=== PATIENT | female | born 1940 | race Caucasian/White ===

== ENCOUNTER 2020-08-19 17:11 | Inpatient (IN) ==
[~2020-08-19 17:11] MED LIST: Ascorbic Acid 500 MG TABLET PO SCH
[2020-08-19] MEDS ORDERED: *HR* Dextrose 50 % in Water (Vial) 50 ML VIAL IVP PRN (18:18)
[2020-08-19] MEDS ORDERED: Dextrose Gel 15 GM/37.5 ML TUBE PO PRN ×2 (18:18)
[2020-08-19] MEDS ORDERED: D5% in Water 1,000 ML IVC PRN (18:18)
[2020-08-19] MEDS: Morphine Sulfate ER (12 HR) 15 MG TABLET.ER PO SCH (20:59)
[2020-08-19] MEDS: carvediloL 6.25 MG TABLET PO SCH (20:59)
[2020-08-19] MEDS: Apixaban 5 MG TABLET PO SCH (20:59)
[2020-08-19] MEDS: Famotidine 20 MG TABLET PO SCH (20:59)
[2020-08-19] MEDS: Insulin LISPRO 300 UNITS/3 ML VIAL SUBQ SCH (20:59)
[2020-08-19] MEDS: Mirtazapine 15 MG TABLET PO SCH (20:59)
[2020-08-20 05:41] LABS: Hematocrit 29.1 % (35.3-44.9); Hemoglobin 9.7 g/dL (11.5-15.4); Mean Corpuscular HGB Conc 33.3 g/dL (31.6-35.5); Mean Corpuscular Hemoglobin 28.8 pg (28.0-33.3); Mean Corpuscular Volume 86.4 fL (83.0-100.0); Mean Platelet Volume 8.9 fL (9.4-12.4); Monocytes # 0.2 K/mcL (0.0-1.3); Platelet Count 298 K/mcL (140-400); Red Blood Count 3.37 M/mcL (3.82-4.97); Red Cell Distribution Width 14.4 % (11.5-14.5); White Blood Count 2.2 K/mcL (4.3-11.1)
[2020-08-20 05:56] LABS: INR 1.4; Prothrombin Time 15.7 Seconds (9.4-12.1)
[2020-08-20] MEDS ORDERED: *HR* Heparin 5,000 UNIT/ML VIAL SQ SCH (06:00)
[2020-08-20 06:07] LABS: BUN/Creatinine Ratio 40 (6-26); Blood Urea Nitrogen 23 mg/dL (8-23); Calcium 7.8 mg/dL (8.6-10.3); Carbon Dioxide 27 mEq/L (23-29); Chloride 102 mEq/L (98-107); Glucose 173 mg/dL (70-105); Osmolality,Calculated 288 (280-300); Potassium 4.3 mEq/L (3.5-5.1); Sodium 135 mEq/L (136-145); eGFR For African Americans > 60 (> 60); eGFR For Non-African Americans > 60 (> 60)
[2020-08-20 06:56] LABS: Lymphocytes # 0.3 K/mcL (0.6-4.6); Neutrophils # 1.7 K/mcL (1.6-8.9)
[2020-08-20 06:57] LABS: Platelet Estimate Normal (Normal)
[2020-08-20] MEDS: Insulin LISPRO 300 UNITS/3 ML VIAL SUBQ SCH ×4 (10:43→22:32)
[2020-08-20] MEDS: *HR* Metformin 500 MG TABLET PO SCH ×2 (10:46→17:25)
[2020-08-20] MEDS: carvediloL 6.25 MG TABLET PO SCH ×2 (10:46→18:06)
[2020-08-20] MEDS: *HR* SitaGLIPtin 100 MG TABLET PO SCH (10:47)
[2020-08-20] MEDS: Multivit/Ca/Min/Fe/FA 1 TAB TABLET PO SCH (10:47)
[2020-08-20] MEDS: Apixaban 5 MG TABLET PO SCH ×2 (10:47→20:18)
[2020-08-20] MEDS: Morphine Sulfate ER (12 HR) 15 MG TABLET.ER PO SCH ×2 (10:47→20:17)
[2020-08-20] MEDS: dexAMETHasone 4 MG TABLET PO SCH (10:50)
[2020-08-20] MEDS: Famotidine 20 MG TABLET PO SCH (20:18)
[2020-08-20] MEDS: Mirtazapine 15 MG TABLET PO SCH (20:18)
[2020-08-21] MEDS ORDERED: carvediloL 6.25 MG TABLET PO SCH (08:00)
[2020-08-21] MEDS: *HR* SitaGLIPtin 100 MG TABLET PO SCH (09:12)
[2020-08-21] MEDS: dexAMETHasone 4 MG TABLET PO SCH (09:12)
[2020-08-21] MEDS: *HR* Metformin 500 MG TABLET PO SCH ×2 (09:13→16:18)
[2020-08-21] MEDS: carvediloL 6.25 MG TABLET PO SCH ×2 (09:13→16:18)
[2020-08-21] MEDS: Multivit/Ca/Min/Fe/FA 1 TAB TABLET PO SCH (09:13)
[2020-08-21] MEDS: Apixaban 5 MG TABLET PO SCH ×2 (09:14→20:38)
[2020-08-21] MEDS: Morphine Sulfate ER (12 HR) 15 MG TABLET.ER PO SCH ×2 (09:14→20:37)
[2020-08-21] MEDS: Cyanocobalamin (B-12) 1,000 MCG TABLET PO SCH (09:16)
[2020-08-21] MEDS: Insulin LISPRO 300 UNITS/3 ML VIAL SUBQ SCH ×4 (09:17→20:47)
[2020-08-21] MEDS: Ascorbic Acid 500 MG TABLET PO SCH (09:17)
[2020-08-21] MEDS: Ondansetron ODT 4 MG TAB.RAPDIS SL PRN (14:58)
[2020-08-21] MEDS: Famotidine 20 MG TABLET PO SCH (20:37)
[2020-08-21] MEDS: Mirtazapine 15 MG TABLET PO SCH (20:38)
[2020-08-22] MEDS: *HR* OxyCODONE Immed Rel 5 MG TABLET PO PRN (00:54)
[2020-08-22 07:29] LABS: Hematocrit 31.7 % (35.3-44.9); Hemoglobin 10.5 g/dL (11.5-15.4); Mean Corpuscular HGB Conc 33.1 g/dL (31.6-35.5); Mean Corpuscular Hemoglobin 28.9 pg (28.0-33.3); Mean Corpuscular Volume 87.3 fL (83.0-100.0); Mean Platelet Volume 8.6 fL (9.4-12.4); Platelet Count 327 K/mcL (140-400); Red Blood Count 3.63 M/mcL (3.82-4.97); Red Cell Distribution Width 14.7 % (11.5-14.5); White Blood Count 2.6 K/mcL (4.3-11.1)
[2020-08-22 07:46] LABS: BUN/Creatinine Ratio 38 (6-26); Blood Urea Nitrogen 26 mg/dL (8-23); Calcium 8.1 mg/dL (8.6-10.3); Carbon Dioxide 26 mEq/L (23-29); Chloride 98 mEq/L (98-107); Glucose 136 mg/dL (70-105); Magnesium 1.4 mg/dL (1.6-2.6); Osmolality,Calculated 279 (280-300); Potassium 4.6 mEq/L (3.5-5.1); Sodium 131 mEq/L (136-145); eGFR For African Americans > 60 (> 60); eGFR For Non-African Americans > 60 (> 60)
[2020-08-22] MEDS: Insulin LISPRO 300 UNITS/3 ML VIAL SUBQ SCH ×4 (08:16→20:06)
[2020-08-22] MEDS: *HR* SitaGLIPtin 100 MG TABLET PO SCH (08:17)
[2020-08-22] MEDS: *HR* Metformin 500 MG TABLET PO SCH ×2 (08:17→15:06)
[2020-08-22] MEDS: Multivit/Ca/Min/Fe/FA 1 TAB TABLET PO SCH (08:17)
[2020-08-22] MEDS: Morphine Sulfate ER (12 HR) 15 MG TABLET.ER PO SCH ×2 (08:17→20:03)
[2020-08-22] MEDS: carvediloL 6.25 MG TABLET PO SCH ×2 (08:17→16:46)
[2020-08-22] MEDS: Apixaban 5 MG TABLET PO SCH ×2 (08:17→20:03)
[2020-08-22] MEDS: dexAMETHasone 4 MG TABLET PO SCH (08:18)
[2020-08-22 10:32] LABS: Bilirubin,Urine Negative (Negative); Blood,Urine Large (Negative); Clarity,Urine Turbid (Clear); Color,Urine Yellow (Yellow); Glucose,Urine (UA) 500 mg/dL (Normal); Ketones,Urine Negative (Negative); Leukocyte Esterase,Urine Large (Negative); Nitrite,Urine Negative (Negative); Protein,Urine 100 mg/dL (Neg-Trace); Specific Gravity,Urine 1.025 (1.010-1.025); Urobilinogen,Urine Normal (Normal)
[2020-08-22 10:40] LABS: Bacteria,Urine Many per hpf (None-Few); RBC,Urine 50-100 per hpf (0-3); WBC,Urine TNTC per hpf (0-3)
[2020-08-22] MEDS ORDERED: cefTRIAXone 2,000 MG in 0.9 % Sodium Chloride Mini Bag 100 ML IVPB SCH (11:09)
[2020-08-22] MEDS ORDERED: 0.9 % Sodium Chloride 1,000 ML ONE (15:03)
[2020-08-22] MEDS: 0.9 % Sodium Chloride 1,000 ML IVC SCH (15:15)
[2020-08-22] MEDS: Mirtazapine 15 MG TABLET PO SCH (20:03)
[2020-08-22] MEDS: Famotidine 20 MG TABLET PO SCH (20:04)
[2020-08-23] MEDS: 0.9 % Sodium Chloride 1,000 ML IVC SCH ×2 (05:11→20:26)
[2020-08-23] MEDS: Insulin LISPRO 300 UNITS/3 ML VIAL SUBQ SCH ×4 (08:32→21:35)
[2020-08-23] MEDS: Multivit/Ca/Min/Fe/FA 1 TAB TABLET PO SCH (08:33)
[2020-08-23] MEDS: *HR* Metformin 500 MG TABLET PO SCH ×2 (08:33→16:54)
[2020-08-23] MEDS: Morphine Sulfate ER (12 HR) 15 MG TABLET.ER PO SCH ×2 (08:33→20:24)
[2020-08-23] MEDS: Apixaban 5 MG TABLET PO SCH ×2 (08:33→20:24)
[2020-08-23] MEDS: carvediloL 6.25 MG TABLET PO SCH ×2 (08:33→16:54)
[2020-08-23] MEDS: *HR* SitaGLIPtin 100 MG TABLET PO SCH (08:33)
[2020-08-23] MEDS: dexAMETHasone 4 MG TABLET PO SCH (08:33)
[2020-08-23 09:42] LABS: Basophils % 0.4 %; Eosinophils % 0.8 %; Hematocrit 32.8 % (35.3-44.9); Hemoglobin 10.6 g/dL (11.5-15.4); Immature Granulocytes % 2.9 % (0-4); Lymphocytes # 0.2 K/mcL (0.6-4.6); Lymphocytes % 7.8 %; Mean Corpuscular HGB Conc 32.3 g/dL (31.6-35.5); Mean Corpuscular Hemoglobin 28.9 pg (28.0-33.3); Mean Corpuscular Volume 89.4 fL (83.0-100.0); Mean Platelet Volume 8.7 fL (9.4-12.4); Monocytes # 0.1 K/mcL (0.0-1.3); Monocytes % 5.7 %; Platelet Count 281 K/mcL (140-400); Red Blood Count 3.67 M/mcL (3.82-4.97); Red Cell Distribution Width 14.7 % (11.5-14.5); Segmented Neutrophils % 82.4 %; White Blood Count 2.5 K/mcL (4.3-11.1)
[2020-08-23 09:56] LABS: Alanine Aminotransferase 31 Units/L (7-52); Albumin 2.7 g/dL (3.5-5.7); Alkaline Phosphatase 44 Units/L (34-104); Aspartate Amino Transferase 15 Units/L (13-39); BUN/Creatinine Ratio 34 (6-26); Bilirubin,Total 0.4 mg/dL (0.3-1.0); Blood Urea Nitrogen 19 mg/dL (8-23); Calcium 7.9 mg/dL (8.6-10.3); Carbon Dioxide 26 mEq/L (23-29); Chloride 103 mEq/L (98-107); Globulin 2.8 g/dL (2.4-3.5); Glucose 90 mg/dL (70-105); Magnesium 1.4 mg/dL (1.6-2.6); Osmolality,Calculated 284 (280-300); Potassium 4.2 mEq/L (3.5-5.1); Sodium 136 mEq/L (136-145); Total Protein 5.5 g/dL (6.4-8.9); eGFR For African Americans > 60 (> 60); eGFR For Non-African Americans > 60 (> 60)
[2020-08-23 09:59] LABS: Neutrophils # 2.1 K/mcL (1.6-8.9)
[2020-08-23] MEDS: Famotidine 20 MG TABLET PO SCH (20:24)
[2020-08-23] MEDS: Mirtazapine 15 MG TABLET PO SCH (20:24)
[2020-08-24] MEDS: dexAMETHasone 4 MG TABLET PO SCH (07:47)
[2020-08-24] MEDS: carvediloL 6.25 MG TABLET PO SCH ×2 (07:47→16:18)
[2020-08-24] MEDS: *HR* Metformin 500 MG TABLET PO SCH ×2 (07:47→16:18)
[2020-08-24] MEDS: Morphine Sulfate ER (12 HR) 15 MG TABLET.ER PO SCH ×2 (07:47→21:12)
[2020-08-24] MEDS: *HR* SitaGLIPtin 100 MG TABLET PO SCH (07:47)
[2020-08-24] MEDS: Multivit/Ca/Min/Fe/FA 1 TAB TABLET PO SCH (07:48)
[2020-08-24] MEDS: Insulin LISPRO 300 UNITS/3 ML VIAL SUBQ SCH ×4 (07:48→21:15)
[2020-08-24] MEDS: Apixaban 5 MG TABLET PO SCH ×2 (07:48→21:12)
[2020-08-24] MEDS: Ascorbic Acid 500 MG TABLET PO SCH (08:00)
[2020-08-24] MEDS: Cyanocobalamin (B-12) 1,000 MCG TABLET PO SCH (08:00)
[2020-08-24] MEDS: 0.9 % Sodium Chloride 1,000 ML IVC SCH (09:55)
[2020-08-24] MEDS: Mirtazapine 15 MG TABLET PO SCH (21:11)
[2020-08-24] MEDS: Famotidine 20 MG TABLET PO SCH (21:12)
[2020-08-25] MEDS: Insulin LISPRO 300 UNITS/3 ML VIAL SUBQ SCH ×4 (08:39→20:31)
[2020-08-25] MEDS: Multivit/Ca/Min/Fe/FA 1 TAB TABLET PO SCH (08:44)
[2020-08-25] MEDS: carvediloL 6.25 MG TABLET PO SCH ×2 (08:45→16:10)
[2020-08-25] MEDS: *HR* Metformin 500 MG TABLET PO SCH ×2 (08:45→16:10)
[2020-08-25] MEDS: Morphine Sulfate ER (12 HR) 15 MG TABLET.ER PO SCH ×2 (08:45→20:31)
[2020-08-25] MEDS: *HR* SitaGLIPtin 100 MG TABLET PO SCH (08:45)
[2020-08-25] MEDS: Apixaban 5 MG TABLET PO SCH ×2 (08:45→20:30)
[2020-08-25] MEDS: dexAMETHasone 4 MG TABLET PO SCH (08:47)
[2020-08-25] MEDS: Mirtazapine 15 MG TABLET PO SCH (20:30)
[2020-08-25] MEDS: Famotidine 20 MG TABLET PO SCH (20:30)
[2020-08-26] MEDS: Insulin LISPRO 300 UNITS/3 ML VIAL SUBQ SCH ×5 (06:44→20:33)
[2020-08-26] MEDS: Aspirin Enteric Coated 81 MG Tablet PO SCH ×2 (06:44)
[2020-08-26] MEDS: carvediloL 6.25 MG TABLET PO SCH ×2 (06:46→16:45)
[2020-08-26] MEDS: Ascorbic Acid 500 MG TABLET PO SCH (06:46)
[2020-08-26] MEDS: Morphine Sulfate ER (12 HR) 15 MG TABLET.ER PO SCH ×2 (06:46→20:32)
[2020-08-26] MEDS: *HR* SitaGLIPtin 100 MG TABLET PO SCH (06:46)
[2020-08-26] MEDS: Multivit/Ca/Min/Fe/FA 1 TAB TABLET PO SCH (06:47)
[2020-08-26] MEDS: Cyanocobalamin (B-12) 1,000 MCG TABLET PO SCH (06:47)
[2020-08-26] MEDS: dexAMETHasone 4 MG TABLET PO SCH (06:47)
[2020-08-26] MEDS: *HR* Metformin 500 MG TABLET PO SCH ×2 (06:47→16:45)
[2020-08-26] MEDS: Apixaban 5 MG TABLET PO SCH ×2 (06:47→20:32)
[2020-08-26] MEDS ORDERED: Insulin LISPRO 300 UNITS/3 ML VIAL SUBQ SCH (11:49)
[2020-08-26] MEDS: *HR* OxyCODONE Immed Rel 5 MG TABLET PO PRN (14:18)
[2020-08-26] MEDS: Mirtazapine 15 MG TABLET PO SCH (20:32)
[2020-08-26] MEDS: Famotidine 20 MG TABLET PO SCH (20:33)
[2020-08-27] MEDS: Aspirin Enteric Coated 81 MG Tablet PO SCH (07:53)
[2020-08-27] MEDS: Insulin LISPRO 300 UNITS/3 ML VIAL SUBQ SCH ×4 (07:53→20:35)
[2020-08-27] MEDS: *HR* SitaGLIPtin 100 MG TABLET PO SCH (07:53)
[2020-08-27] MEDS: Morphine Sulfate ER (12 HR) 15 MG TABLET.ER PO SCH ×2 (07:53→20:31)
[2020-08-27] MEDS: dexAMETHasone 4 MG TABLET PO SCH (07:54)
[2020-08-27] MEDS: carvediloL 6.25 MG TABLET PO SCH ×2 (07:54→17:47)
[2020-08-27] MEDS: *HR* Metformin 500 MG TABLET PO SCH ×2 (07:54→17:47)
[2020-08-27] MEDS: Multivit/Ca/Min/Fe/FA 1 TAB TABLET PO SCH (07:54)
[2020-08-27] MEDS: Apixaban 5 MG TABLET PO SCH ×2 (07:54→20:30)
[2020-08-27] MEDS: Mirtazapine 15 MG TABLET PO SCH (20:30)
[2020-08-27] MEDS: Famotidine 20 MG TABLET PO SCH (20:31)
[2020-08-28] MEDS: *HR* Metformin 500 MG TABLET PO SCH ×2 (07:31→17:47)
[2020-08-28] MEDS: *HR* SitaGLIPtin 100 MG TABLET PO SCH (07:31)
[2020-08-28] MEDS: Aspirin Enteric Coated 81 MG Tablet PO SCH (07:31)
[2020-08-28] MEDS: Multivit/Ca/Min/Fe/FA 1 TAB TABLET PO SCH (07:32)
[2020-08-28] MEDS: carvediloL 6.25 MG TABLET PO SCH ×2 (07:32→17:47)
[2020-08-28] MEDS: Insulin LISPRO 300 UNITS/3 ML VIAL SUBQ SCH ×4 (07:32→20:13)
[2020-08-28] MEDS: Apixaban 5 MG TABLET PO SCH ×2 (07:32→20:55)
[2020-08-28] MEDS: Morphine Sulfate ER (12 HR) 15 MG TABLET.ER PO SCH ×2 (07:32→20:55)
[2020-08-28] MEDS: dexAMETHasone 4 MG TABLET PO SCH (07:32)
[2020-08-28] MEDS: Ascorbic Acid 500 MG TABLET PO SCH (07:33)
[2020-08-28] MEDS: Cyanocobalamin (B-12) 1,000 MCG TABLET PO SCH (07:33)
[2020-08-28] MEDS: Ondansetron ODT 4 MG TAB.RAPDIS SL PRN (20:12)
[2020-08-28] MEDS: Famotidine 20 MG TABLET PO SCH (20:55)
[2020-08-28] MEDS: Mirtazapine 15 MG TABLET PO SCH (20:55)
[2020-08-29 06:33] LABS: Hematocrit 27.9 % (35.3-44.9); Hemoglobin 9.1 g/dL (11.5-15.4); Mean Corpuscular HGB Conc 32.6 g/dL (31.6-35.5); Mean Corpuscular Hemoglobin 28.6 pg (28.0-33.3); Mean Corpuscular Volume 87.7 fL (83.0-100.0); Mean Platelet Volume 8.1 fL (9.4-12.4); Platelet Count 322 K/mcL (140-400); Red Blood Count 3.18 M/mcL (3.82-4.97); Red Cell Distribution Width 15.2 % (11.5-14.5); White Blood Count 4.1 K/mcL (4.3-11.1)
[2020-08-29 06:52] LABS: BUN/Creatinine Ratio 39 (6-26); Blood Urea Nitrogen 21 mg/dL (8-23); Calcium 7.9 mg/dL (8.6-10.3); Carbon Dioxide 27 mEq/L (23-29); Chloride 102 mEq/L (98-107); Glucose 109 mg/dL (70-105); Magnesium 1.4 mg/dL (1.6-2.6); Osmolality,Calculated 288 (280-300); Phosphorous 2.7 mg/dL (2.7-4.5); Potassium 4.4 mEq/L (3.5-5.1); Sodium 137 mEq/L (136-145); eGFR For African Americans > 60 (> 60); eGFR For Non-African Americans > 60 (> 60)
[2020-08-29] MEDS: Insulin LISPRO 300 UNITS/3 ML VIAL SUBQ SCH ×4 (09:02→21:00)
[2020-08-29] MEDS: *HR* Metformin 500 MG TABLET PO SCH ×2 (09:09→16:15)
[2020-08-29] MEDS: carvediloL 6.25 MG TABLET PO SCH ×2 (09:09→16:15)
[2020-08-29] MEDS: Morphine Sulfate ER (12 HR) 15 MG TABLET.ER PO SCH ×2 (09:09→19:23)
[2020-08-29] MEDS: *HR* SitaGLIPtin 100 MG TABLET PO SCH (09:09)
[2020-08-29] MEDS: dexAMETHasone 4 MG TABLET PO SCH (09:09)
[2020-08-29] MEDS: Apixaban 5 MG TABLET PO SCH (09:10)
[2020-08-29] MEDS: Multivit/Ca/Min/Fe/FA 1 TAB TABLET PO SCH (09:10)
[2020-08-29] MEDS: Aspirin Enteric Coated 81 MG Tablet PO SCH (09:10)
[2020-08-29] MEDS: Mirtazapine 15 MG TABLET PO SCH (19:23)
[2020-08-29] MEDS: Famotidine 20 MG TABLET PO SCH (19:23)
[2020-08-30] MEDS: Aspirin Enteric Coated 81 MG Tablet PO SCH (07:26)
[2020-08-30] MEDS: dexAMETHasone 4 MG TABLET PO SCH (07:27)
[2020-08-30] MEDS: Morphine Sulfate ER (12 HR) 15 MG TABLET.ER PO SCH ×2 (07:27→20:31)
[2020-08-30] MEDS: *HR* Metformin 500 MG TABLET PO SCH ×2 (07:27→16:33)
[2020-08-30] MEDS: carvediloL 6.25 MG TABLET PO SCH ×2 (07:27→16:32)
[2020-08-30] MEDS: *HR* SitaGLIPtin 100 MG TABLET PO SCH (07:27)
[2020-08-30] MEDS: Insulin LISPRO 300 UNITS/3 ML VIAL SUBQ SCH ×4 (07:28→20:32)
[2020-08-30] MEDS: Famotidine 20 MG TABLET PO SCH (20:30)
[2020-08-30] MEDS: Mirtazapine 15 MG TABLET PO SCH (20:31)
[2020-08-31] MEDS: *HR* Metformin 500 MG TABLET PO SCH ×2 (07:35→16:34)
[2020-08-31] MEDS: Aspirin Enteric Coated 81 MG Tablet PO SCH (07:35)
[2020-08-31] MEDS: carvediloL 6.25 MG TABLET PO SCH ×2 (07:35→16:33)
[2020-08-31] MEDS: Insulin LISPRO 300 UNITS/3 ML VIAL SUBQ SCH ×5 (07:36→22:03)
[2020-08-31] MEDS: *HR* SitaGLIPtin 100 MG TABLET PO SCH (07:36)
[2020-08-31] MEDS: dexAMETHasone 4 MG TABLET PO SCH (07:36)
[2020-08-31] MEDS: Morphine Sulfate ER (12 HR) 15 MG TABLET.ER PO SCH ×2 (07:36→20:50)
[2020-08-31] MEDS: Ascorbic Acid 500 MG TABLET PO SCH (07:37)
[2020-08-31] MEDS: Cyanocobalamin (B-12) 1,000 MCG TABLET PO SCH (07:37)
[2020-08-31] MEDS: Ondansetron ODT 4 MG TAB.RAPDIS SL PRN (19:52)
[2020-08-31] MEDS: Famotidine 20 MG TABLET PO SCH (20:49)
[2020-08-31] MEDS: Mirtazapine 15 MG TABLET PO SCH (20:50)
[2020-08-31] MEDS: Apixaban 5 MG TABLET PO SCH (22:04)
[2020-09-01] MEDS: Insulin LISPRO 300 UNITS/3 ML VIAL SUBQ SCH ×4 (07:50→22:19)
[2020-09-01] MEDS: *HR* SitaGLIPtin 100 MG TABLET PO SCH (08:47)
[2020-09-01] MEDS: dexAMETHasone 4 MG TABLET PO SCH (08:47)
[2020-09-01] MEDS: Aspirin Enteric Coated 81 MG Tablet PO SCH (08:47)
[2020-09-01] MEDS: *HR* Metformin 500 MG TABLET PO SCH ×2 (08:48→16:44)
[2020-09-01] MEDS: Apixaban 5 MG TABLET PO SCH ×2 (08:48→22:18)
[2020-09-01] MEDS: Morphine Sulfate ER (12 HR) 15 MG TABLET.ER PO SCH ×2 (08:49→22:18)
[2020-09-01] MEDS: carvediloL 6.25 MG TABLET PO SCH ×2 (08:49→16:41)
[2020-09-01] MEDS: Famotidine 20 MG TABLET PO SCH (22:17)
[2020-09-01] MEDS: Mirtazapine 15 MG TABLET PO SCH (22:17)
[2020-09-02] MEDS: *HR* Metformin 500 MG TABLET PO SCH ×2 (08:33→17:38)
[2020-09-02] MEDS: Morphine Sulfate ER (12 HR) 15 MG TABLET.ER PO SCH ×2 (08:34→20:06)
[2020-09-02] MEDS: Apixaban 5 MG TABLET PO SCH ×2 (08:34→20:06)
[2020-09-02] MEDS: Aspirin Enteric Coated 81 MG Tablet PO SCH (08:34)
[2020-09-02] MEDS: Insulin LISPRO 300 UNITS/3 ML VIAL SUBQ SCH ×4 (08:34→20:07)
[2020-09-02] MEDS: dexAMETHasone 4 MG TABLET PO SCH (08:34)
[2020-09-02] MEDS: *HR* SitaGLIPtin 100 MG TABLET PO SCH (08:34)
[2020-09-02] MEDS: carvediloL 6.25 MG TABLET PO SCH ×2 (08:34→17:38)
[2020-09-02] MEDS: Cyanocobalamin (B-12) 1,000 MCG TABLET PO SCH (08:49)
[2020-09-02] MEDS: Ascorbic Acid 500 MG TABLET PO SCH (08:49)
[2020-09-02] MEDS: Mirtazapine 15 MG TABLET PO SCH (20:06)
[2020-09-02] MEDS: Famotidine 20 MG TABLET PO SCH (20:06)
[2020-09-03] MEDS: Aspirin Enteric Coated 81 MG Tablet PO SCH (08:07)
[2020-09-03] MEDS: carvediloL 6.25 MG TABLET PO SCH ×2 (08:07→16:57)
[2020-09-03] MEDS: Multivit/Ca/Min/Fe/FA 1 TAB TABLET PO SCH (08:07)
[2020-09-03] MEDS: *HR* SitaGLIPtin 100 MG TABLET PO SCH (08:07)
[2020-09-03] MEDS: Apixaban 5 MG TABLET PO SCH ×2 (08:07→20:40)
[2020-09-03] MEDS: *HR* Metformin 500 MG TABLET PO SCH ×2 (08:07→16:57)
[2020-09-03] MEDS: Morphine Sulfate ER (12 HR) 15 MG TABLET.ER PO SCH ×2 (08:07→20:39)
[2020-09-03] MEDS: Insulin LISPRO 300 UNITS/3 ML VIAL SUBQ SCH ×4 (08:08→20:11)
[2020-09-03] MEDS: Famotidine 20 MG TABLET PO SCH (20:39)
[2020-09-03] MEDS: Mirtazapine 15 MG TABLET PO SCH (20:40)
[2020-09-04] MEDS: Aspirin Enteric Coated 81 MG Tablet PO SCH (07:38)
[2020-09-04] MEDS: *HR* Metformin 500 MG TABLET PO SCH ×2 (07:38→18:03)
[2020-09-04] MEDS: Multivit/Ca/Min/Fe/FA 1 TAB TABLET PO SCH (07:39)
[2020-09-04] MEDS: Morphine Sulfate ER (12 HR) 15 MG TABLET.ER PO SCH ×2 (07:39→20:28)
[2020-09-04] MEDS: *HR* SitaGLIPtin 100 MG TABLET PO SCH (07:39)
[2020-09-04] MEDS: Insulin LISPRO 300 UNITS/3 ML VIAL SUBQ SCH ×4 (07:39→20:28)
[2020-09-04] MEDS: Apixaban 5 MG TABLET PO SCH ×2 (07:39→20:28)
[2020-09-04] MEDS: carvediloL 6.25 MG TABLET PO SCH ×2 (07:39→18:03)
[2020-09-04] MEDS: Ascorbic Acid 500 MG TABLET PO SCH (07:42)
[2020-09-04] MEDS: Cyanocobalamin (B-12) 1,000 MCG TABLET PO SCH (07:42)
[2020-09-04] MEDS: Sennosides/Docusate Sodium TABLET PO SCH ×2 (14:22→20:28)
[2020-09-04 15:34] LABS: Hemoglobin 9.5 g/dL (11.5-15.4); Mean Corpuscular HGB Conc 32.8 g/dL (31.6-35.5); Mean Corpuscular Hemoglobin 28.8 pg (28.0-33.3); Mean Corpuscular Volume 87.9 fL (83.0-100.0); Mean Platelet Volume 8.2 fL (9.4-12.4); Platelet Count 304 K/mcL (140-400); Red Cell Distribution Width 16.6 % (11.5-14.5)
[2020-09-04 15:48] LABS: BUN/Creatinine Ratio 34 (6-26); Blood Urea Nitrogen 20 mg/dL (8-23); Carbon Dioxide 26 mEq/L (23-29); Chloride 98 mEq/L (98-107); Glucose 101 mg/dL (70-105); Osmolality,Calculated 277 (280-300); Potassium 3.7 mEq/L (3.5-5.1); Sodium 132 mEq/L (136-145); eGFR For African Americans > 60 (> 60); eGFR For Non-African Americans > 60 (> 60)
[2020-09-04] MEDS: Famotidine 20 MG TABLET PO SCH (20:28)
[2020-09-04] MEDS: Mirtazapine 15 MG TABLET PO SCH (20:28)
[2020-09-04] MEDS: Magnesium Oxide 400 MG TABLET PO SCH (20:28)
[2020-09-05] MEDS: Insulin LISPRO 300 UNITS/3 ML VIAL SUBQ SCH ×4 (07:53→19:40)
[2020-09-05] MEDS: carvediloL 6.25 MG TABLET PO SCH ×2 (08:03→16:19)
[2020-09-05] MEDS: *HR* Metformin 500 MG TABLET PO SCH ×2 (08:24→16:19)
[2020-09-05] MEDS: Multivit/Ca/Min/Fe/FA 1 TAB TABLET PO SCH (08:25)
[2020-09-05] MEDS: Magnesium Oxide 400 MG TABLET PO SCH ×2 (08:25→19:39)
[2020-09-05] MEDS: Aspirin Enteric Coated 81 MG Tablet PO SCH (08:25)
[2020-09-05] MEDS: *HR* SitaGLIPtin 100 MG TABLET PO SCH (08:25)
[2020-09-05] MEDS: Sennosides/Docusate Sodium TABLET PO SCH ×2 (08:25→19:40)
[2020-09-05] MEDS: Morphine Sulfate ER (12 HR) 15 MG TABLET.ER PO SCH ×2 (08:26→19:39)
[2020-09-05 08:40] LABS: Bilirubin,Urine Negative (Negative); Blood,Urine Trace-intact (Negative); Clarity,Urine Clear (Clear); Color,Urine Yellow (Yellow); Glucose,Urine (UA) Normal (Normal); Ketones,Urine Negative (Negative); Leukocyte Esterase,Urine Negative (Negative); Nitrite,Urine Negative (Negative); Protein,Urine >=300 mg/dL (Neg-Trace); Specific Gravity,Urine 1.025 (1.010-1.025); Urobilinogen,Urine Normal (Normal)
[2020-09-05 08:51] LABS: Bacteria,Urine Few per hpf (None-Few); Mucus,Urine Few per lpf (None-Few)
[2020-09-05] MEDS: Famotidine 20 MG TABLET PO SCH (19:39)
[2020-09-05] MEDS: Mirtazapine 15 MG TABLET PO SCH (19:39)
[2020-09-06] MEDS: Insulin LISPRO 300 UNITS/3 ML VIAL SUBQ SCH ×4 (07:25→20:22)
[2020-09-06] MEDS: *HR* SitaGLIPtin 100 MG TABLET PO SCH (09:02)
[2020-09-06] MEDS: Aspirin Enteric Coated 81 MG Tablet PO SCH (09:02)
[2020-09-06] MEDS: *HR* Metformin 500 MG TABLET PO SCH ×2 (09:02→16:43)
[2020-09-06] MEDS: Multivit/Ca/Min/Fe/FA 1 TAB TABLET PO SCH (09:02)
[2020-09-06] MEDS: Sennosides/Docusate Sodium TABLET PO SCH ×2 (09:02→20:11)
[2020-09-06] MEDS: Morphine Sulfate ER (12 HR) 15 MG TABLET.ER PO SCH ×2 (09:03→20:12)
[2020-09-06] MEDS: carvediloL 6.25 MG TABLET PO SCH ×2 (09:03→16:43)
[2020-09-06] MEDS: Famotidine 20 MG TABLET PO SCH (20:11)
[2020-09-06] MEDS: Mirtazapine 15 MG TABLET PO SCH (20:12)
[2020-09-07] MEDS: *HR* OxyCODONE Immed Rel 5 MG TABLET PO PRN (00:17)
[2020-09-07 06:45] VITALS: BP 95/54
[2020-09-07] MEDS: Insulin LISPRO 300 UNITS/3 ML VIAL SUBQ SCH ×3 (07:35→17:01)
[2020-09-07] MEDS: Morphine Sulfate ER (12 HR) 15 MG TABLET.ER PO SCH (08:06)
[2020-09-07] MEDS: Aspirin Enteric Coated 81 MG Tablet PO SCH (08:06)
[2020-09-07] MEDS: *HR* Metformin 500 MG TABLET PO SCH ×2 (08:06→17:12)
[2020-09-07] MEDS: Multivit/Ca/Min/Fe/FA 1 TAB TABLET PO SCH (08:06)
[2020-09-07] MEDS: carvediloL 6.25 MG TABLET PO SCH ×2 (08:07→17:12)
[2020-09-07] MEDS: *HR* SitaGLIPtin 100 MG TABLET PO SCH (08:07)
[2020-09-07] MEDS: Sennosides/Docusate Sodium TABLET PO SCH (08:07)
[2020-09-07] MEDS: Cyanocobalamin (B-12) 1,000 MCG TABLET PO SCH (08:12)
[2020-09-07] MEDS: Ascorbic Acid 500 MG TABLET PO SCH (08:12)
[2020-09-07 11:43] LABS: Basophils % 0.2 %; Eosinophils % 0.8 %; Hematocrit 27.2 % (35.3-44.9); Immature Granulocytes % 1.3 % (0-4); Lymphocytes # 0.4 K/mcL (0.6-4.6); Lymphocytes % 7.1 %; Mean Corpuscular HGB Conc 33.1 g/dL (31.6-35.5); Mean Corpuscular Hemoglobin 28.8 pg (28.0-33.3); Mean Corpuscular Volume 86.9 fL (83.0-100.0); Mean Platelet Volume 8.3 fL (9.4-12.4); Monocytes # 0.3 K/mcL (0.0-1.3); Monocytes % 6.3 %; Neutrophils # 4.4 K/mcL (1.6-8.9); Platelet Count 215 K/mcL (140-400); Red Blood Count 3.13 M/mcL (3.82-4.97); Red Cell Distribution Width 16.6 % (11.5-14.5); Segmented Neutrophils % 84.3 %; White Blood Count 5.2 K/mcL (4.3-11.1)
[2020-09-07 11:57] LABS: Alanine Aminotransferase 25 Units/L (7-52); Albumin 2.5 g/dL (3.5-5.7); Alkaline Phosphatase 40 Units/L (34-104); Aspartate Amino Transferase 29 Units/L (13-39); BUN/Creatinine Ratio 34 (6-26); Bilirubin,Total 0.7 mg/dL (0.3-1.0); Blood Urea Nitrogen 20 mg/dL (8-23); Calcium 7.8 mg/dL (8.6-10.3); Carbon Dioxide 28 mEq/L (23-29); Chloride 97 mEq/L (98-107); Globulin 2.6 g/dL (2.4-3.5); Glucose 162 mg/dL (70-105); Osmolality,Calculated 278 (280-300); Potassium 4.5 mEq/L (3.5-5.1); Sodium 131 mEq/L (136-145); Total Protein 5.1 g/dL (6.4-8.9); eGFR For African Americans > 60 (> 60); eGFR For Non-African Americans > 60 (> 60)
== END 2020-09-07 18:00 | disposition home health service (06) | DRG 945 ==
LOC: INPPIK 17:31
PROVIDERS: ADMIT Family Medicine; ATTEND Family Medicine